=== PATIENT | female | born 1975 | race Caucasian/White ===

== ENCOUNTER 2017-05-07 10:41 | Emergency (ER) | payer MEDICARE ==
[~2017-05-07] VITALS: Ht 175.3 cm; Wt 64.4 kg
--- NOTE | 2017-05-07 21:33 | EKG ---
[facility] [address] [facility] [place] [address] Signed Sinus tachycardia Right atrial enlargement Lateral infarct , age undetermined Possible Inferior infarct , age undetermined Abnormal ECG No previous ECGs available Confirmed by SARA LIN MD ([id number]) on 05/07/2017 9:33:41 PM Electronically Signed By: SARA LIN MD 05/07/17 2133 PATIENT NAME: TIFFANY BHATT Electrocardiogram DATE OF : 73 PHYSICIAN: SARA LIN MD REPORT #: [id number] REPORT IS CONFIDENTIAL AND NOT TO BE RELEASED WITHOUT AUTHORIZATION
--- NOTE | 2017-05-07 21:33 | EKG ---
[facility] [address] [facility] [place] [address] Signed Normal sinus rhythm Prolonged QT Abnormal ECG When compared with ECG of 07-MAY-2017 10:59, (Unconfirmed) ST no longer depressed in Anterior leads Nonspecific T wave abnormality no longer evident in Anterior leads Confirmed by SARA LIN MD ([id number]) on 05/07/2017 9:33:49 PM Electronically Signed By: SARA LIN MD 05/07/17 2133 PATIENT NAME: TIFFANY BHATT Electrocardiogram DATE OF : 73 PHYSICIAN: SARA LIN MD REPORT #: [id number] REPORT IS CONFIDENTIAL AND NOT TO BE RELEASED WITHOUT AUTHORIZATION
== END 2017-05-07 21:35 | disposition home or self-care (01) ==
LOC: ED 10:41
DX: T50.992A Poisoning by other drugs, medicaments and biological substances, intentional self-harm, initial encounter (principal); F20.9 Schizophrenia, unspecified; Y92.810 Car as the place of occurrence of the external cause; Z88.0 Allergy status to penicillin
CPT/HCPCS: 80053; 80176; 81001; 82803; 84443; 84703; 85025; 93005; 93010; 96361; 96365; 96366; 96368; 99283; G0480; J0132; J3480; J7030; J7060